=== PATIENT | male | born 1965 | race Caucasian/White ===

== ENCOUNTER 2020-03-29 12:35 | Inpatient (IN) | payer MEDICARE, OTHER ==
[~2020-03-29] VITALS: Ht 182.9 cm; Wt 106.6 kg
[2020-03-29 16:05] LABS: HEMOGLOBIN 16.2 gm/dl (14.0-17.5); RED BLOOD COUNT 5.2 M/UL (4.20-5.50); WHITE BLOOD COUNT 7.9 K/UL (4.5-11.0)
[2020-03-29 16:45] LABS: BUN/CREATININE RATIO 27 (0-10)
[2020-03-29] MEDS ORDERED: AMARYL4 MG PO (18:10)
[2020-03-29] MEDS ORDERED: CRESTOR5 MG PO (18:13)
[2020-03-29] MEDS ORDERED: GLUCOPHAGE500 MG PO (18:13)
[2020-03-29] MEDS ORDERED: TRULICITY0.75 MG/0. SQ (18:14)
[2020-03-29] MEDS ORDERED: BASAGLAR K100 UNIT/1 SQ (18:15)
[2020-03-29] MEDS ORDERED: LISINOPRIL10 MG PO (18:15)
[2020-03-30 05:02] LABS: HEMOGLOBIN 15.2 gm/dl (14.0-17.5); RED BLOOD COUNT 4.95 M/UL (4.20-5.50); WHITE BLOOD COUNT 6.3 K/UL (4.5-11.0)
[2020-03-30 05:31] LABS: BUN/CREATININE RATIO 25 (0-10)
[2020-03-31 04:28] LABS: HEMOGLOBIN 16.1 gm/dl (14.0-17.5); RED BLOOD COUNT 5.22 M/UL (4.20-5.50); WHITE BLOOD COUNT 6.5 K/UL (4.5-11.0)
[2020-03-31 04:48] LABS: BUN/CREATININE RATIO 25 (0-10)
[2020-04-01 06:24] LABS: HEMOGLOBIN 15.7 gm/dl (14.0-17.5); RED BLOOD COUNT 5.15 M/UL (4.20-5.50); WHITE BLOOD COUNT 5.3 K/UL (4.5-11.0)
[2020-04-01 06:45] LABS: BUN/CREATININE RATIO 25 (0-10)
[2020-04-02 04:32] LABS: HEMOGLOBIN 14.3 gm/dl (14.0-17.5); RED BLOOD COUNT 4.72 M/UL (4.20-5.50); WHITE BLOOD COUNT 5.1 K/UL (4.5-11.0)
[2020-04-02 04:46] LABS: BUN/CREATININE RATIO 20 (0-10)
[2020-04-03 06:28] LABS: HEMOGLOBIN 14.6 gm/dl (14.0-17.5); RED BLOOD COUNT 4.85 M/UL (4.20-5.50); WHITE BLOOD COUNT 5.2 K/UL (4.5-11.0)
[2020-04-03 06:54] LABS: BUN/CREATININE RATIO 15 (0-10)
[2020-04-03] MEDS ORDERED: ASPIRIN EC81 MG PO (09:23)
[2020-04-03] MEDS ORDERED: ROCEPHIN 2 GM AD2 GM IV (09:23)
--- NOTE | 2020-04-03 12:38 | NUR ---
CONTA[facility]ED [facility] AND INFORMED OF PATIENT GOING HOME TODAY
--- NOTE | 2020-04-03 15:04 | NUR ---
REPORT GIVEN TO EARLINE WEBER- ANOTHER NURSE THAT CALLED FOR REPORT
== END 2020-04-03 14:52 | disposition home health service (06) | DRG 264 ==
LOC: ER1 12:35 → CDU 17:57 → M/S 17:57
PROVIDERS: Family Medicine; Physician Assistant; Podiatrist Foot & Ankle Surgery; ADMIT Internal Medicine Infectious Disease
PROC: 0JBR0ZZ Excision of Left Foot Subcutaneous Tissue and Fascia, Open Approach (ICD-10-PCS; principal; 2020-04-01 12:00)
DX: E11.52 Type 2 diabetes mellitus with diabetic peripheral angiopathy with gangrene (principal); I96 Gangrene, not elsewhere classified; M86.172 Other acute osteomyelitis, left ankle and foot; E11.69 Type 2 diabetes mellitus with other specified complication; Z79.4 Long term (current) use of insulin; I10 Essential (primary) hypertension; E78.5 Hyperlipidemia, unspecified; F17.210 Nicotine dependence, cigarettes, uncomplicated; G89.29 Other chronic pain; M54.9 Dorsalgia, unspecified; Z79.899 Other long term (current) drug therapy; Z20.822 Contact with and (suspected) exposure to COVID-19; E11.40 Type 2 diabetes mellitus with diabetic neuropathy, unspecified; E11.621 Type 2 diabetes mellitus with foot ulcer; L97.529 Non-pressure chronic ulcer of other part of left foot with unspecified severity; K44.9 Diaphragmatic hernia without obstruction or gangrene
CPT/HCPCS: 36415; 71046; 71250; 73630; 73721; 80048; 80053; 80202; 82962; 83036; 85025; 85652; 86140; 87070; 87077; 87205; 93005; 93925; 96372; 96374; 99285; J0696; J2250; J2405; J2543; J2704; J2795; J3010; J3370; J7050; J7070; J7120; Q4133; U0002

== ENCOUNTER 2021-10-24 22:11 | Inpatient (IN) | payer MEDICARE, OTHER ==
[~2021-10-24] VITALS: Ht 182.9 cm; Wt 106.0 kg
[~2021-10-24 22:11] MED LIST: AMARYL4 MG PO; ASPIRIN EC81 MG PO; BASAGLAR K100 UNIT/1 SQ; CRESTOR5 MG PO; GLUCOPHAGE500 MG PO; LISINOPRIL20 MG PO; ROCEPHIN 2 GM AD2 GM IV; TRULICITY0.75 MG/0. SQ
[2021-10-24 22:40] LABS: HEMOGLOBIN 14.1 gm/dl (14.0-17.5); RED BLOOD COUNT 4.54 M/UL (4.20-5.50); WHITE BLOOD COUNT 9.6 K/UL (4.5-11.0)
[2021-10-25] MEDS ORDERED: GABAPENTIN800 MG PO (10:53)
[2021-10-25] MEDS ORDERED: FLONASE ALLER15.8 ML (10:54)
[2021-10-26 06:56] LABS: HEMOGLOBIN 14.9 gm/dl (14.0-17.5); RED BLOOD COUNT 4.75 M/UL (4.20-5.50); WHITE BLOOD COUNT 7.2 K/UL (4.5-11.0)
[2021-10-26 07:31] LABS: BUN/CREATININE RATIO 22 (0-10)
[2021-10-26] MEDS ORDERED: BRILINTA 90 MG90 MG PO (10:16)
[2021-10-26] MEDS ORDERED: AMLODIPINE BESYL5 MG PO (10:16)
[2021-10-26] MEDS ORDERED: NITROGLYCERIN0.4 MG SL (10:16)
[2021-10-26] MEDS ORDERED: ATORVASTATIN CA20 MG PO (10:16)
[2021-10-26] MEDS ORDERED: LOPRESSOR 25 MG25 MG PO (10:16)
== END 2021-10-26 12:25 | disposition home or self-care (01) | DRG 247 ==
LOC: ER1 22:11 → CDU 22:31 → CCU 22:31
PROVIDERS: Physician Assistant; Student in an Organized Health Care Education/Training Program; ADMIT Internal Medicine Interventional Cardiology
PROC: 027034Z Dilation of Coronary Artery, One Artery with Drug-eluting Intraluminal Device, Percutaneous Approach (ICD-10-PCS; 2021-10-24)
PROC: B24BZZZ Ultrasonography of Heart with Aorta (ICD-10-PCS; principal; 2021-10-25)
DX: I21.19 ST elevation (STEMI) myocardial infarction involving other coronary artery of inferior wall (principal); S22.31XA Fracture of one rib, right side, initial encounter for closed fracture; I10 Essential (primary) hypertension; Z20.822 Contact with and (suspected) exposure to COVID-19; E78.5 Hyperlipidemia, unspecified; E11.40 Type 2 diabetes mellitus with diabetic neuropathy, unspecified; F17.210 Nicotine dependence, cigarettes, uncomplicated; K44.9 Diaphragmatic hernia without obstruction or gangrene; G89.29 Other chronic pain; M54.9 Dorsalgia, unspecified; E66.9 Obesity, unspecified; I25.10 Atherosclerotic heart disease of native coronary artery without angina pectoris; I16.0 Hypertensive urgency; S01.81XA Laceration without foreign body of other part of head, initial encounter; W18.30XA Fall on same level, unspecified, initial encounter; Z90.49 Acquired absence of other specified parts of digestive tract; Z98.890 Other specified postprocedural states; Z79.82 Long term (current) use of aspirin; Z68.31 Body mass index [BMI] 31.0-31.9, adult; Z82.49 Family history of ischemic heart disease and other diseases of the circulatory system; Z83.3 Family history of diabetes mellitus; Z95.5 Presence of coronary angioplasty implant and graft
CPT/HCPCS: ECHO; 36415; 70450; 71045; 71101; 73030; 80053; 80061; 82550; 82553; 82962; 83036; 84484; 85025; 85027; 85347; 85610; 85730; 93005; 93306; 99285; A6212; C1725; C1769; C1874; C1887; J0461; J1644; J2370; J3246; J7040; Q9965